=== PATIENT | female | born 1990 | race Caucasian/White ===

== ENCOUNTER 2017-07-14 16:08 | Observation (INO) | payer OTHER ==
[2017-07-14] MEDS ORDERED: DUONEB 0.5-3 MG/3 ml Neb IH ONE (16:37)
[2017-07-14] MEDS ORDERED: DUONEB 0.5-3 MG/3 ml Neb IH PRN (16:39)
[2017-07-14 16:47] LABS: A-aADO2 -65; ABG HEMOGLOBIN 15.6; ABG POTASSIUM 5.7 (3.5-5.1); ARTERIAL BLD GAS O2 SATURATION 99.8 % (95-100); ARTERIAL BLOOD GAS BASE EXCESS 1.4 (-2.0-2.0); ARTERIAL BLOOD GAS FIO2 21 %; ARTERIAL BLOOD GAS PO2 192 mmHg (75-100); CARBOXYHEMOGLOBIN 5.3 % THgb (0.0-6.9); HCO3- 19.4 (22-28); HGB O2 SAT 93.6 g/dF (94-100); Methhemoglobin 0.8 % (1.4-1.5); paO2 pAO1 1.51
[2017-07-14 16:49] LABS: ARTERIAL BLOOD GAS PCO2 18 mmHg (35-45); ARTERIAL BLOOD GAS pH 7.64 (7.35-7.45)
[2017-07-14 16:50] LABS: ABG SITE LEFT RADIAL; ALLEN TEST OK? YES
[2017-07-14 17:03] LABS: Hemoglobin 13.9 gm/dl (12.0-16.0); Mean Cell Volume 86.3 fl (78-100); Mean Corpuscular Hemoglobin 27.9 pg (26-32); Mean Corpuscular Hgb Concent. 32.3 g/dl (32-36); Mean Platelet Volume 9.4 fl (6-9.5); Platelet Count 316 K/mm3 (150-450); Red Blood Count 4.98 M/mm3 (4.1-5.4); Red Cell Distribution Width 13.5 % (11.5-14.0); White Blood Count 12.2 K/mm3 (4.0-10.5)
[2017-07-14 17:40] LABS: ALBUMIN 3.7 g/dL (3.4-5.0); ALKALINE PHOSPHATASE 139 U/L (46-116); ANION GAP 15.5 MEQ/L (5-15); BLOOD UREA NITROGEN 8 mg/dL (9-20); CHLORIDE 105 mEq/L (98-107); Calcium 9.4 mg/dL (8.5-10.1); Carbon Dioxide 24.3 mEq/L (21-32); Creatinine 1 0.85 mg/dl (0.55-1.30); EST GLOMERULAR FILTRATION RATE > 60 ML/MIN; Glucose 132 MG/DL (70-110); Potassium 3.8 mEq/L (3.5-5.1); SGOT/AST 42 U/L (15-37); SGPT/ALT 57 U/L (12-78); SODIUM 141 mEq/L (136-145); Total Protein 7.9 gm/dL (6.4-8.2)
[2017-07-14 18:05] LABS: INFLUENZA A NEGATIVE (NEGATIVE); INFLUENZA B NEGATIVE (NEGATIVE); RESPIRATORY SYNCTIAL VIRUS NEGATIVE (Negative)
[2017-07-14] MEDS: Sodium Chloride 0.9% 1000 ML 1,000 ML IV SCH (18:19)
[2017-07-14] MEDS: solu-MEDROL 125 MG IV SCH ×2 (18:19→22:33)
[2017-07-14] MEDS: ROCEPHIN 1 Gm-D5w 50 ml Bag** 1 G/50 ML IVPB IV SCH (18:19)
[2017-07-15] MEDS: TYLENOL 325 MG PO PRN ×2 (00:24→12:29)
[2017-07-15] MEDS: Sodium Chloride 0.9% 1000 ML 1,000 ML IV SCH ×2 (01:59→09:04)
[2017-07-15] MEDS: solu-MEDROL 125 MG IV SCH ×2 (06:27→13:46)
--- NOTE | 2017-07-15 08:35 | XRAY ---
Indication: Cough and hoarseness. Comparison: October 23, 2010. PA/lateral chest again demonstrates normal heart, lungs, and bony thorax.
[2017-07-15] MEDS: DUONEB 0.5-3 MG/3 ml Neb IH SCH ×3 (10:15→15:15)
[2017-07-15] MEDS: ROCEPHIN 1 Gm-D5w 50 ml Bag** 1 G/50 ML IVPB IV SCH (10:59)
[2017-07-15 12:41] VITALS: BP 126/62; O2SAT 93
[2017-07-15 15:17] VITALS: PULSE 92
== END 2017-07-15 15:55 | disposition home or self-care (01) ==
LOC: MED SURG 16:08
PROVIDERS: ADMIT General Practice; ATTEND General Practice
DX: J18.0 Bronchopneumonia, unspecified organism (principal); J06.9 Acute upper respiratory infection, unspecified; E66.8 Other obesity
CPT/HCPCS: 36415; 36600; 71046; 80053; 82375; 82803; 84703; 85027; 87631; 94640; 94760; G0378; J0696; J2930; A9270-GY

== ENCOUNTER 2017-10-28 13:50 | Observation (INO) | payer OTHER ==
[2017-10-28 16:03] LABS: A-aADO2 36; ABG POTASSIUM 3.8 (3.5-5.1); ABG SITE LEFT RADIAL; ALLEN TEST OK? YES; ARTERIAL BLD GAS O2 SATURATION 95.8 % (95-100); ARTERIAL BLOOD GAS BASE EXCESS 1.3 (-2.0-2.0); ARTERIAL BLOOD GAS FIO2 21 %; ARTERIAL BLOOD GAS PCO2 40 mmHg (35-45); ARTERIAL BLOOD GAS PO2 64 mmHg (75-100); ARTERIAL BLOOD GAS pH 7.42 (7.35-7.45); CARBOXYHEMOGLOBIN 1.9 % THgb (0.0-6.9); HCO3- 25.9 (22-28); HGB O2 SAT 92.9 g/dF (94-100); Methhemoglobin 1.1 % (1.4-1.5); paO2 pAO1 0.64
[2017-10-28 16:31] LABS: Hematocrit 40.5 % (35-47); Hemoglobin 13.3 gm/dl (12.0-16.0); Mean Cell Volume 86.2 fl (78-100); Mean Corpuscular Hemoglobin 28.3 pg (26-32); Mean Corpuscular Hgb Concent. 32.8 g/dl (32-36); Mean Platelet Volume 9.2 fl (6-9.5); Platelet Count 224 K/mm3 (150-450); Red Cell Distribution Width 14.2 % (11.5-14.0); White Blood Count 6.4 K/mm3 (4.0-10.5)
[2017-10-28] MEDS ORDERED: DUONEB 0.5-3 MG/3 ml Neb IH PRN (16:42)
[2017-10-28 17:01] LABS: ALKALINE PHOSPHATASE 116 U/L (38-126); ANION GAP 13.9 MEQ/L (5-15); BLOOD UREA NITROGEN 12 mg/dL (7-17); CHLORIDE 103 mmol/L (98-107); Calcium 8.9 mg/dL (8.4-10.2); Carbon Dioxide 25 mmol/L (22-30); Creatinine 1 0.63 mg/dL (0.52-1.04); Glucose 115 mg/dL (74-106); Potassium 3.9 mmol/L (3.5-5.1); SGOT/AST 45 U/L (14-36); SGPT/ALT 45 U/L (0-35); SODIUM 138 mmol/L (137-145); Total Protein 7.2 g/dL (6.3-8.2)
[2017-10-28 17:03] LABS: INFLUENZA A NEGATIVE (NEGATIVE); INFLUENZA B NEGATIVE (NEGATIVE); RESPIRATORY SYNCTIAL VIRUS NEGATIVE (Negative)
[2017-10-28] MEDS: Sodium Chloride 0.9% 1000 ML 1,000 ML IV SCH (17:10)
[2017-10-28] MEDS: solu-MEDROL 125 MG IV SCH (17:20)
[2017-10-28] MEDS: ROCEPHIN 1 Gm-D5w 50 ml Bag** 1 G/50 ML IVPB IV SCH (18:16)
[2017-10-28] MEDS: DUONEB 0.5-3 MG/3 ml Neb IH SCH (21:10)
[2017-10-29] MEDS: solu-MEDROL 125 MG IV SCH ×3 (01:07→07:28)
[2017-10-29] MEDS: Sodium Chloride 0.9% 1000 ML 1,000 ML IV SCH (03:51)
[2017-10-29] MEDS: DUONEB 0.5-3 MG/3 ml Neb IH SCH ×2 (07:00→10:24)
[2017-10-29 10:28] VITALS: O2SAT 95
[2017-10-29] MEDS: ROCEPHIN 1 Gm-D5w 50 ml Bag** 1 G/50 ML IVPB IV SCH (10:32)
--- NOTE | 2017-10-29 12:15 | PCM.SSS ---
History of Present Illness - Chief Complaint Chief Complaint: shortness of breath for 1-2 days History of Present Illness: see H&P - Review of Systems Constitutional: No Fever, No Chills Eyes: No Symptoms Ears, Nose, & Throat: No Symptoms Respiratory: Cough, Orthopnea, Short Of Breath Cardiac: No Chest Pain, No Edema, No Syncope Abdominal/Gastrointestinal: No Abdominal Pain, No Nausea, No Vomiting, No Diarrhea Genitourinary Symptoms: No Dysuria Musculoskeletal: No Back Pain, No Neck Pain Skin: No Rash Neurological: No Dizziness, No Focal Weakness, No Sensory Changes Psychological: No Symptoms Endocrine: No Symptoms Hematologic/Lymphatic: No Symptoms Immunological/Allergic: No Symptoms Medications & Allergies Home Medications: Home Medication List Albuterol/Ipratropium 3ml Neb* [DUONEB 0.5-3 MG/3 ml Neb] 3 ml IH Q6HPRN PRN # 60 ampul.neb 07/15/17 [Rx Confirmed 10/28/17] Nebulizer/Compressor [Comp-Air Nebulizer System] 1 each MC Q6HPRN PRN #1 each [Rx Confirmed 10/28/17] Cephalexin Mh 500 mg [Keflex 500 mg] 500 mg PO QID #20 capsule 10/29/17 [Rx] Allergies/Adverse Reactions: Allergies Allergy/AdvReac Type Severity Reaction Status Date / Time Sulfa (Sulfonamide Allergy Intermediate Rash Verified 07/14/17 16:24 Antibiotics) latex Allergy Verified 07/14/17 16:24 - Past Medical History Past Medical History: Yes Neurological History: No Pertinent History ENT History: No Pertinent History Cardiac History: No Pertinent History Respiratory History: Asthma, Bronchitis, Pneumonia Endocrine Medical History: No Pertinent History Musculoskelatal History: No Pertinent History GI Medical History: No Pertinent History History: No Pertinent History Pyscho-Social History: Anxiety, Bipolar, Depression Reproductive Disorders: No Pertinent History - Female History Hx Last Menstrual Period: 09/18/17 Are you now?: No - Past Surgical History Past Surgical History: Yes Neuro Surgical History: No Pertinent History Cardiac History: No Pertinent History Respiratory Surgery: No Pertinent History GI Surgical History: No Pertinent History Genitourinary Surgical Hx: No Pertinent History Musculskeletal Surgical Hx: No Pertinent History Female Surgical History: No Pertinent History Other Surgical History: nasal 2012 - Social History Smoking Status: Former smoker How long have you smoked: 8-9 years Exposure to second hand smoke: Yes (occasionally) Alcohol: None Drug Use: none - Physical Exam Vital Signs: Vital Signs - 24 hr Temp Pulse Resp BP Pulse Ox 10/29/17 11:14 20 95 10/29/17 10:27 109 H 18 95 10/29/17 07:18 97.8 F 116 H 20 132/66 92 L 10/29/17 07:08 107 H 18 93 L 10/29/17 03:00 98.0 F 98 H 20 121/69 94 L 10/29/17 02:28 18 10/28/17 23:00 97.6 F 114 H 18 124/64 92 L 10/28/17 19:00 102 H 18 98 10/28/17 18:56 98.4 F 113 H 20 124/66 96 10/28/17 17:05 97 10/28/17 16:55 100 H 20 95 10/28/17 16:31 98.2 F 113 H 20 132/68 91 L 10/28/17 15:13 98.2 F 113 H 132/68 10/28/17 15:10 98.2 F 113 H 20 132/68 91 L Oxygen-Last 24 hours O2 Percentage 2 Liters = 28% General Appearance: no apparent distress, alert Neurologic Exam: alert, oriented x 3, cooperative, normal mood/affect, nml cerebellar function, nml station & gait, sensation nml, No motor deficits Eye Exam: PERRL/EOMI, eyes nml inspection Ears, Nose, Throat Exam: normal ENT inspection, TMs normal, pharynx normal, moist mucous membranes Neck Exam: normal inspection, non-tender, supple, full range of motion Respiratory Exam: normal breath sounds, lungs clear, No respiratory distress Cardiovascular Exam: regular rate/rhythm, normal heart sounds, normal peripheral pulses Gastrointestinal/Abdomen Exam: soft, normal bowel sounds, No tenderness, No mass Back Exam: normal inspection, normal range of motion, No CVA tenderness, No vertebral tenderness Extremity Exam: normal inspection, normal range of motion, pelvis stable Skin Exam: normal color, warm, dry, No rash Lymphatic Exam: No adenopathy Results - Labs Lab/Micro Results: Lab Results-Last 24 Hours 10/28/17 10/28/17 10/28/17 Range/Units 16:00 16:27 16:27 WBC 6.4 (4.0-10.5) K/mm3 RBC 4.70 (4.1-5.4) M/mm3 Hgb 13.3 (12.0-16.0) gm/dl Hct 40.5 (35-47) % MCV 86.2 (78-100) fl MCH 28.3 (26-32) pg MCHC 32.8 (32-36) g/dl RDW 14.2 H (11.5-14.0) % Plt Count 224 (150-450) K/mm3 MPV 9.2 (6-9.5) fl Puncture Site LEFT RADIAL pCO2 40 (35-45) mmHg pO2 64 L (75-100) mmHg Base Excess 1.3 (-2.0-2.0) O2 Saturation 92.9 L (94-100) g/dF ABG pH 7.42 (7.35-7.45) ABG HCO3 25.9 (22-28) ABG O2 Sat (Measured) 95.8 (95-100) % William Test YES A-a Gradient 36 a/A Ratio 0.64 Hemoglobin 14.0 Carboxyhemoglobin 1.9 (0.0-6.9) % THgb Methemoglobin 1.1 L (1.4-1.5) % Potassium 3.8 3.9 (3.5-5.1) Temperature 37.0 C POC O2 Flow Rate 21 % Sodium 138 (137-145) mmol/L Chloride 103 (98-107) mmol/L Carbon Dioxide 25 (22-30) mmol/L Anion Gap 13.9 (5-15) MEQ/L BUN 12 (7-17) mg/dL Creatinine 0.63 (0.52-1.04) mg/dL Estimated GFR > 60.0 ML/MIN Glucose 115 H (74-106) mg/dL Calcium 8.9 (8.4-10.2) mg/dL Total Bilirubin 0.30 (0.2-1.3) mg/dL AST 45 H (14-36) U/L ALT 45 H (0-35) U/L Alkaline Phosphatase 116 (38-126) U/L Troponin I (0.000-0.034) ng/mL Serum Total Protein 7.2 (6.3-8.2) g/dL Albumin 4.0 (3.5-5.0) g/dL Serum , Qual (Negative) Influenza Type A Ag (NEGATIVE) Influenza Type B Ag (NEGATIVE) RSV (PCR) (Negative) 10/28/17 10/28/17 10/28/17 Range/Units 16:27 16:27 16:27 WBC (4.0-10.5) K/mm3 RBC (4.1-5.4) M/mm3 Hgb (12.0-16.0) gm/dl Hct (35-47) % MCV (78-100) fl MCH (26-32) pg MCHC (32-36) g/dl RDW (11.5-14.0) % Plt Count (150-450) K/mm3 MPV (6-9.5) fl Puncture Site pCO2 (35-45) mmHg pO2 (75-100) mmHg Base Excess (-2.0-2.0) O2 Saturation (94-100) g/dF ABG pH (7.35-7.45) ABG HCO3 (22-28) ABG O2 Sat (Measured) (95-100) % William Test A-a Gradient a/A Ratio Hemoglobin Carboxyhemoglobin (0.0-6.9) % THgb Methemoglobin (1.4-1.5) % Potassium (3.5-5.1) Temperature C POC O2 Flow Rate % Sodium (137-145) mmol/L Chloride (98-107) mmol/L Carbon Dioxide (22-30) mmol/L Anion Gap (5-15) MEQ/L BUN (7-17) mg/dL Creatinine (0.52-1.04) mg/dL Estimated GFR ML/MIN Glucose (74-106) mg/dL Calcium (8.4-10.2) mg/dL Total Bilirubin (0.2-1.3) mg/dL AST (14-36) U/L ALT (0-35) U/L Alkaline Phosphatase (38-126) U/L Troponin I < 0.012 (0.000-0.034) ng/mL Serum Total Protein (6.3-8.2) g/dL Albumin (3.5-5.0) g/dL Serum , Qual NEGATIVE (Negative) Influenza Type A Ag NEGATIVE (NEGATIVE) Influenza Type B Ag NEGATIVE (NEGATIVE) RSV (PCR) NEGATIVE (Negative) - Other Procedures and Tests Respiratory Therapy 10/28/17 16:43 Respiratory Nebulizer UD 10/28/17 17:03 Oxygen NASAL CANNULA 2 lpm 10/28/17 19:00 Respiratory Nebulizer QID Assessment/Plan (1) Bronchitis Current Visit: Yes Status: Resolved Code(s): J40 - BRONCHITIS, NOT SPECIFIED ACUTE OR CHRONIC Hospital Summary - Hospital Course Hospital Course: Chief Complaint Diagnosis bronchio-pneumonia Allergies Allergy/AdvReac Type Severity Reaction Status Date / Time Sulfa (Sulfonamide Allergy Intermediate Rash Verified 07/14/17 16:24 Antibiotics) latex Allergy Verified 07/14/17 16:24 Vital Signs (Last 24 hours) Temp Pulse Resp BP Pulse Ox 10/29/17 11:14 20 95 10/29/17 10:27 109 H 18 95 10/29/17 07:18 97.8 F 116 H 20 132/66 92 L 10/29/17 07:08 107 H 18 93 L 10/29/17 03:00 98.0 F 98 H 20 121/69 94 L 10/29/17 02:28 18 10/28/17 23:00 97.6 F 114 H 18 124/64 92 L 10/28/17 19:00 102 H 18 98 10/28/17 18:56 98.4 F 113 H 20 124/66 96 10/28/17 17:05 97 10/28/17 16:55 100 H 20 95 10/28/17 16:31 98.2 F 113 H 20 132/68 91 L 10/28/17 15:13 98.2 F 113 H 132/68 10/28/17 15:10 98.2 F 113 H 20 132/68 91 L Current Medications Generic Name Dose Route Start Last Admin Trade Name Freq PRN Reason Stop Dose Admin Albuterol/Ipratropium 3 ml 10/28/17 19:00 10/29/17 10:24 Duoneb 0.5-3 Mg/3 Ml Neb IH 11/27/17 18:59 3 ml QIDRT REGINA Administration Albuterol/Ipratropium 3 ml 10/28/17 16:42 10/28/17 16:49 Duoneb 0.5-3 Mg/3 Ml Neb IH 11/27/17 16:41 3 ml Q4HPRN PRN Administration SHORTNESS OF BREATH/WHEEZING Ceftriaxone Sodium/Dextrose 1 g in 50 mls @ 100 mls/hr 10/28/17 16:00 10:32 Rocephin 1 Gm-D5w 50 Ml Bag IV 11/27/17 15:59 100 mls/hr Q24H10 REGINA Administration Sodium Chloride 1,000 mls @ 100 mls/hr 10/28/17 15:15 10/29/17 03:51 Sodium Chloride 0.9% 1000 Ml IV 11/27/17 15:14 100 mls/hr .Q10H REGINA Administration Methylprednisolone Sodium Succinate 60 mg 10/28/17 15:30 10/29/17 07:28 Solu-Medrol 125 Mg IV 11/27/17 15:29 60 mg Q8HT REGINA Administration Intake & Output (Last 24 hours) 10/27/17 10/28/17 10/29/17 10/30/17 11:59 11:59 11:59 11:59 Intake Total 2189 Output Total 1800 Balance 389 Weight 120.9 kg Laboratory Results (Last 24 hours) 10/28/17 10/28/17 10/28/17 16:27 16:27 16:27 WBC RBC Hgb Hct MCV MCH MCHC RDW Plt Count MPV Puncture Site pCO2 pO2 Base Excess O2 Saturation ABG pH ABG HCO3 ABG O2 Sat (Measured) William Test A-a Gradient a/A Ratio Hemoglobin Carboxyhemoglobin Methemoglobin Potassium Temperature POC O2 Flow Rate Sodium Chloride Carbon Dioxide Anion Gap BUN Creatinine Estimated GFR Glucose Calcium Total Bilirubin AST ALT Alkaline Phosphatase Troponin I < 0.012 Serum Total Protein Albumin Serum , Qual NEGATIVE Influenza Type A Ag NEGATIVE Influenza Type B Ag NEGATIVE RSV (PCR) NEGATIVE 10/28/17 10/28/17 10/28/17 16:27 16:27 16:00 WBC 6.4 RBC 4.70 Hgb 13.3 Hct 40.5 MCV 86.2 MCH 28.3 MCHC 32.8 RDW 14.2 H Plt Count 224 MPV 9.2 Puncture Site LEFT RADIAL pCO2 40 pO2 64 L Base Excess 1.3 O2 Saturation 92.9 L ABG pH 7.42 ABG HCO3 25.9 ABG O2 Sat (Measured) 95.8 William Test YES A-a Gradient 36 a/A Ratio 0.64 Hemoglobin 14.0 Carboxyhemoglobin 1.9 Methemoglobin 1.1 L Potassium 3.9 3.8 Temperature 37.0 POC O2 Flow Rate 21 Sodium 138 Chloride 103 Carbon Dioxide 25 Anion Gap 13.9 BUN 12 Creatinine 0.63 Estimated GFR > 60.0 Glucose 115 H Calcium 8.9 Total Bilirubin 0.30 AST 45 H ALT 45 H Alkaline Phosphatase 116 Troponin I Serum Total Protein 7.2 Albumin 4.0 Serum , Qual Influenza Type A Ag Influenza Type B Ag RSV (PCR) Orders (Last 24 hours) Category Date Time Status IV Insertion ROUTINE Care 10/28/17 15:[address] in Observation ROUTINE Care 10/28/17 14:46 Active Sequential Compression Device Q6H Care 10/28/17 15:12 Active Regular Diet Diet 10/28/17 Dinner Active ARTERIAL BLOOD GASES Urgent Lab 10/28/17 16:00 Completed CBC Urgent Lab 10/28/17 16:27 Completed CMP Urgent Lab 10/28/17 16:27 Completed HCG QUALITATIVE,SERUM Urgent Lab 10/28/17 16:27 Completed Respiratory Panel Urgent Lab 10/28/17 16:27 Completed TROPONIN Stat Lab 10/28/17 16:27 Completed Albuterol/Ipratropium 3ml Neb* [DUONEB 0.5-3 MG/3 ml Med 10/28/17 16:42 Active Neb] 3 ml IH Q4HPRN PRN Albuterol/Ipratropium 3ml Neb* [DUONEB 0.5-3 MG/3 ml Med 10/28/17 19:00 Active Neb] 3 ml IH QIDRT Ceftriaxone 1 GM/50 ML PREMIX* [ROCEPHIN 1 Gm-D5w 50 ml Med 10/28/17 16:00 Active Bag] 1 g in 50 ml IV Q24H10 Methylprednis Sod Succ 125 mg* [solu-MEDROL 125 MG] Med 10/28/17 15:30 Active 60 mg IV Q8HT NaCl 0.9% 1000 ml [Sodium Chloride 0.9% 1000 ML] 1,000 Med 10/28/17 15:15 Active ml IV 100 mls/hr EKG ROUTINE RT 10/28/17 15:12 Completed Oxygen NASAL CANNULA 2 lpm RT 10/28/17 17:03 Active Respiratory Nebulizer QID RT 10/28/17 19:00 Active Respiratory Nebulizer UD RT 10/28/17 16:43 Active - Vitals & Intake/Output Vital Signs: Vital Signs Temperature 97.8 F 10/29/17 07:18 Pulse Rate 109 H 10/29/17 10:27 Respiratory Rate 20 10/29/17 11:14 Blood Pressure 132/66 10/29/17 07:18 O2 Sat by Pulse Oximetry 95 10/29/17 11:14 Oxygen-Last Documented O2 Percentage 2 Liters = 28% Intake & Output: Intake & Output 10/27/17 10/28/17 10/29/17 10/30/17 11:59 11:59 11:59 11:59 Intake Total 2189 Output Total 1800 Balance 389 Weight 120.9 kg - Lab Result Diagrams: 10/28/17 16:27 10/28/17 16:27 Lab Results-Last 24 Hrs: Lab Results-Last 24 Hours 10/28/17 10/28/17 10/28/17 Range/Units 16:00 16:27 16:27 WBC 6.4 (4.0-10.5) K/mm3 RBC 4.70 (4.1-5.4) M/mm3 Hgb 13.3 (12.0-16.0) gm/dl Hct 40.5 (35-47) % MCV 86.2 (78-100) fl MCH 28.3 (26-32) pg MCHC 32.8 (32-36) g/dl RDW 14.2 H (11.5-14.0) % Plt Count 224 (150-450) K/mm3 MPV 9.2 (6-9.5) fl Puncture Site LEFT RADIAL pCO2 40 (35-45) mmHg pO2 64 L (75-100) mmHg Base Excess 1.3 (-2.0-2.0) O2 Saturation 92.9 L (94-100) g/dF ABG pH 7.42 (7.35-7.45) ABG HCO3 25.9 (22-28) ABG O2 Sat (Measured) 95.8 (95-100) % William Test YES A-a Gradient 36 a/A Ratio 0.64 Hemoglobin 14.0 Carboxyhemoglobin 1.9 (0.0-6.9) % THgb Methemoglobin 1.1 L (1.4-1.5) % Potassium 3.8 3.9 (3.5-5.1) Temperature 37.0 C POC O2 Flow Rate 21 % Sodium 138 (137-145) mmol/L Chloride 103 (98-107) mmol/L Carbon Dioxide 25 (22-30) mmol/L Anion Gap 13.9 (5-15) MEQ/L BUN 12 (7-17) mg/dL Creatinine 0.63 (0.52-1.04) mg/dL Estimated GFR > 60.0 ML/MIN Glucose 115 H (74-106) mg/dL Calcium 8.9 (8.4-10.2) mg/dL Total Bilirubin 0.30 (0.2-1.3) mg/dL AST 45 H (14-36) U/L ALT 45 H (0-35) U/L Alkaline Phosphatase 116 (38-126) U/L Troponin I (0.000-0.034) ng/mL Serum Total Protein 7.2 (6.3-8.2) g/dL Albumin 4.0 (3.5-5.0) g/dL Serum , Qual (Negative) Influenza Type A Ag (NEGATIVE) Influenza Type B Ag (NEGATIVE) RSV (PCR) (Negative) 10/28/17 10/28/17 10/28/17 Range/Units 16:27 16:27 16:27 WBC (4.0-10.5) K/mm3 RBC (4.1-5.4) M/mm3 Hgb (12.0-16.0) gm/dl Hct (35-47) % MCV (78-100) fl MCH (26-32) pg MCHC (32-36) g/dl RDW (11.5-14.0) % Plt Count (150-450) K/mm3 MPV (6-9.5) fl Puncture Site pCO2 (35-45) mmHg pO2 (75-100) mmHg Base Excess (-2.0-2.0) O2 Saturation (94-100) g/dF ABG pH (7.35-7.45) ABG HCO3 (22-28) ABG O2 Sat (Measured) (95-100) % William Test A-a Gradient a/A Ratio Hemoglobin Carboxyhemoglobin (0.0-6.9) % THgb Methemoglobin (1.4-1.5) % Potassium (3.5-5.1) Temperature C POC O2 Flow Rate % Sodium (137-145) mmol/L Chloride (98-107) mmol/L Carbon Dioxide (22-30) mmol/L Anion Gap (5-15) MEQ/L BUN (7-17) mg/dL Creatinine (0.52-1.04) mg/dL Estimated GFR ML/MIN Glucose (74-106) mg/dL Calcium (8.4-10.2) mg/dL Total Bilirubin (0.2-1.3) mg/dL AST (14-36) U/L ALT (0-35) U/L Alkaline Phosphatase (38-126) U/L Troponin I < 0.012 (0.000-0.034) ng/mL Serum Total Protein (6.3-8.2) g/dL Albumin (3.5-5.0) g/dL Serum , Qual NEGATIVE (Negative) Influenza Type A Ag NEGATIVE (NEGATIVE) Influenza Type B Ag NEGATIVE (NEGATIVE) RSV (PCR) NEGATIVE (Negative) - Procedures and Test Procedures and Tests throughout Hospitalization: Therapy Orders & Screens 10/28/17 15:12 EKG ROUTINE Comment: 10/28/17 16:43 Respiratory Nebulizer UD Comment: DUONEB Q4PRN Diagnosis: bronchio-pneumonia 10/28/17 17:03 Oxygen NASAL CANNULA 2 lpm Comment: Diagnosis: bronchio-pneumonia 10/28/17 19:00 Respiratory Nebulizer QID Comment: DUONEB QID Diagnosis: bronchio-pneumonia - Discharge Discharge Date: 10/29/17 Disposition: Home, Self-Care Condition: Stable Prescriptions: New Cephalexin Mh 500 mg [Keflex 500 mg] 500 mg PO QID #20 capsule Continue Nebulizer/Compressor [Comp-Air Nebulizer System] 1 each MC Q6HPRN PRN #1 each PRN Reason: Shortness Of Breath Albuterol/Ipratropium 3ml Neb* [DUONEB 0.5-3 MG/3 ml Neb] 3 ml IH Q6HPRN PRN #60 ampul.neb PRN Reason: Shortness Of Breath Instructions: Acute Bronchitis, Adult (DC) Follow up with: MAXX MEDINA [Primary Care Provider] - 11/06/17 11:45 am (at [facility]) Forms: Discharge Instructions
[2017-10-29 13:15] VITALS: BP 136/70; PULSE 100
== END 2017-10-29 13:55 | disposition home or self-care (01) ==
LOC: MED SURG 14:46
PROVIDERS: ADMIT General Practice; ATTEND General Practice
DX: J40 Bronchitis, not specified as acute or chronic (principal); J18.0 Bronchopneumonia, unspecified organism; J06.9 Acute upper respiratory infection, unspecified; E66.8 Other obesity; F41.9 Anxiety disorder, unspecified; F31.9 Bipolar disorder, unspecified; Z87.891 Personal history of nicotine dependence
CPT/HCPCS: 36415; 36600; 80053; 82375; 82803; 84484; 84703; 85027; 87631; 93005; 94150; 94640; 94760; G0378; J0696; J2930; A9270-GY

== ENCOUNTER 2018-05-23 22:02 | Inpatient (IN) | payer OTHER ==
[2018-05-23] MEDS ORDERED: Sodium Chloride 3 ML UD NEBULES IH ONE (22:23)
[2018-05-23] MEDS ORDERED: Levofloxacin 500MG/100ML D5W 500 MG/100 ML BAG IV STA (22:28)
[2018-05-23] MEDS ORDERED: PROVENTIL 2.5 MG/3 ML NEB IH ONE (22:28)
[2018-05-23] MEDS ORDERED: solu-MEDROL 125 MG IV ONE (22:28)
[2018-05-23] MEDS ORDERED: Sodium Chloride 0.9% 1000 ML 1,000 ML IV SCH (22:30)
[2018-05-23] MEDS ORDERED: solu-MEDROL 125 MG ONE (22:39)
[2018-05-23] MEDS ORDERED: Sodium Chloride 0.9% 1000 ML 1,000 ML ONE (22:39)
[2018-05-23] MEDS ORDERED: Levofloxacin 500MG/100ML D5W 500 MG/100 ML BAG IV ONE (22:40)
[2018-05-23] MEDS: Sodium Chloride 0.9% 1000 ML 1,000 ML IV SCH ×2 (22:46→23:49)
[2018-05-23 22:56] LABS: ANION GAP 19.2 MEQ/L (5-15); BLOOD UREA NITROGEN 23 mg/dL (7-17); CHLORIDE 101 mmol/L (98-107); Calcium 9.7 mg/dL (8.4-10.2); Carbon Dioxide 22 mmol/L (22-30); Creatinine 1 0.67 mg/dL (0.52-1.04); Glucose 105 mg/dL (74-106); Potassium 4.2 mmol/L (3.5-5.1); SODIUM 138 mmol/L (137-145)
[2018-05-23 22:58] LABS: INR 0.95 (0.8-3.0)
[2018-05-23 23:08] LABS: Granulocyte Absolute (ANC) 17.51 (1.4-6.9); Hematocrit 46.4 % (35-47); Hemoglobin 15.1 gm/dl (12.0-16.0); Mean Cell Volume 86.1 fl (78-100); Mean Corpuscular Hgb Concent. 32.5 g/dl (32-36); Mean Platelet Volume 9.6 fl (6-9.5); Platelet Count 377 K/mm3 (150-450); Red Blood Count 5.39 M/mm3 (4.1-5.4); Red Cell Distribution Width 14.8 % (11.5-14.0); White Blood Count 22.3 K/mm3 (4.0-10.5)
[2018-05-23 23:11] LABS: D-DIMER QUANTITATION < 215 ng/mL (215-500)
[2018-05-23 23:20] LABS: Lactic Acid 2.3 (0.4-2.0)
[2018-05-23 23:28] LABS: Lymphocytes 16 % (24-44); Monocyte 6 % (0.0-12.0); Neutrophils 78 % (36.0-66.0); Platelet Estimate NORMAL (NORMAL); Total Cells Counted 100
[2018-05-23 23:30] LABS: INFLUENZA A NEGATIVE (NEGATIVE); INFLUENZA B NEGATIVE (NEGATIVE); RESPIRATORY SYNCTIAL VIRUS NEGATIVE (Negative)
[2018-05-23] MEDS ORDERED: Sodium Chloride 0.9% 1000 ML 2,000 ML ONE (23:38)
[2018-05-23] MEDS ORDERED: Sodium Chloride 0.9% 1000 ML 0 ML ONE (23:44)
[2018-05-24] MEDS: Sodium Chloride 0.9% 1000 ML 1,000 ML IV SCH ×2 (00:54→02:25)
--- NOTE | 2018-05-24 01:23 | ERPHSYRPT ---
- History of Present Illness Time Seen by Provider: 05/23/18 22:40 Source: patient Patient Subjective Stated Complaint: pt states she has been sick for 2 weeks and has been short of breath and coughing today Triage Nursing Assessment: pt alert and oriented, answers questions approp. short of breath with talking. pt ambulatory with steady gait noted. frequent hacking cough noted. audible wheeze with expiration. Physician History: PATIENT WITH A HISTORY OF BRONCHIAL ASTHMA COMPLAINS OF PRODUCTIVE COUGH, DIFFICULTY BREATHING AND SHORTNESS OF BREATH X 5 DAYS. HAS HAD NO IMPROVEMENT AFTER 1 WEEK COURSE ANTIBIOTIC KEFLEX 500MG TWICE DAILY ALONG WITH MEDROL DOSEPAK, INHALERS AND NEBULIZERS AT HOME. HAS HAD LOW GRADE FEVER AND CHILLS. Timing/Duration: day(s) Activities at Onset: none Severity of Dyspnea-Max: moderate Severity of Dyspnea-Current: moderate Possible Cause: occasional episodes Modifying Factors: Improves With: activity, exertion Associated Symptoms: cough, tightness International travel in last 2 weeks: No Allergies/Adverse Reactions: Sulfa (Sulfonamide Antibiotics) Allergy (Intermediate, Verified 07/14/17 16:24) Rash latex Allergy (Verified 07/14/17 16:24) Hx Tetanus, Diphtheria Vaccination/Date Given: Yes (08/2017) Hx Influenza Vaccination/Date Given: No Hx Pneumococcal Vaccination/Date Given: No Immunizations Up to Date: Yes - Review of Systems Constitutional: No Fever, No Chills Eyes: No Symptoms Ears, Nose, & Throat: No Symptoms Respiratory: Cough, Dyspnea on Exertion (TRINIDAD), No Dyspnea Cardiac: No Symptoms, No Chest Pain, No Edema, No Syncope Abdominal/Gastrointestinal: No Symptoms, No Abdominal Pain, No Nausea, No Vomiting, No Diarrhea Genitourinary Symptoms: No Symptoms, No Dysuria Musculoskeletal: No Symptoms, No Back Pain, No Neck Pain Skin: No Symptoms, No Rash Neurological: No Dizziness, No Focal Weakness, No Sensory Changes Psychological: No Symptoms Endocrine: No Symptoms All Other Systems: Reviewed and Negative - Past Medical History Pertinent Past Medical History: Yes Neurological History: No Pertinent History ENT History: No Pertinent History Cardiac History: No Pertinent History Respiratory History: Asthma, Bronchitis, Pneumonia Endocrine Medical History: No Pertinent History Musculoskeletal History: No Pertinent History GI Medical History: No Pertinent History History: No Pertinent History Psycho-Social History: Anxiety, Bipolar, Depression Female Reproductive Disorders: No Pertinent History - Past Surgical History Past Surgical History: Yes Neuro Surgical History: No Pertinent History Cardiac: No Pertinent History Respiratory: No Pertinent History Gastrointestinal: No Pertinent History Genitourinary: No Pertinent History Musculoskeletal: No Pertinent History Female Surgical History: No Pertinent History Other Surgical History: nasal 2011 - Social History Smoking Status: Former smoker How long have you smoked: 8-9 years Exposure to second hand smoke: Yes (occasionally) Drug Use: none Patient Lives Alone: No - Female History Hx Last Menstrual Period: unsure- irreg Hx Now: (UNKNOWN) - Nursing Vital Signs Nursing Vital Signs: Initial Vital Signs Temperature 99.1 F 05/23/18 22:22 Pulse Rate 117 H 05/23/18 22:22 Respiratory Rate 24 05/23/18 22:22 Blood Pressure 130/92 05/23/18 22:22 O2 Sat by Pulse Oximetry 97 05/23/18 22:22 Pain Scale Pain Intensity 6 - Physical Exam General Appearance: mild distress Eye Exam: PERRL/EOMI Ears, Nose, Throat Exam: hearing grossly normal Neck Exam: normal inspection Respiratory Exam: diminished breath sounds, wheezing, other (GOOD AIR EXCHANGE, TERMINAL WHEEZES) Cardiovascular/Chest Exam: normal heart sounds, regular rate/rhythm Abdominal/Gastrointestinal Exam: soft, normal bowel sounds Extremity Exam: non-tender, normal range of motion, normal inspection Peripheral Pulses Exam: carotid (R): 2+, carotid (L): 2+, femoral (R): 2+, femoral (L): 2+, dorsalis-pedis (R): 2+, dorsalis-pedis (L): 2+ Neurologic Exam: alert Skin Exam: normal color SpO2 Interpretation: normal SpO2: 94 Oxygen Delivery: Room Air - Course EKG Interpreted by Me: RATE, Sinus Rhythm, NORMAL AXIS - Radiology Exams Chest X-ray Interpretation: Interpreted by me, Negative, No Infiltrates Ordered Tests: Active Orders 24 hr Category Date Time Status EKG-ER Only STAT Care 05/23/18 22:28 Active IV Insertion STAT Care 05/23/18 22:25 Active CHEST 1 VIEW (PORTABLE) Stat Exams 05/24/18 01:01 Taken BLOOD CULTURE Stat Lab 05/23/18 22:48 Received BMP Stat Lab 05/23/18 22:35 Completed CBC W DIFF Stat Lab 05/23/18 22:35 Completed D-DIMER QUANTITATION Stat Lab 05/23/18 22:35 Completed HCG,QUALITATIVE URINE Stat Lab 05/24/18 00:46 Completed Lactic Acid Stat Lab 05/23/18 23:15 Completed Lactic Acid Stat Lab 05/24/18 01:17 Ordered Lactic Acid Stat Lab 05/24/18 01:19 Ordered MAGNESIUM Stat Lab 05/23/18 22:35 Completed Manual Differential NC Stat Lab 05/23/18 22:35 Completed PROTIME WITH INR Stat Lab 05/23/18 22:35 Completed TROPONIN Q3H Lab 05/23/18 22:36 Completed TROPONIN Q3H Lab 05/24/18 01:30 Ordered TROPONIN Q3H Lab 05/24/18 04:30 Ordered TROPONIN Q3H Lab 05/24/18 07:30 Ordered TROPONIN Q3H Lab 05/24/18 10:30 Ordered Peak Expiratory Flow Rate ONCE RT 05/23/18 22:28 Active Respiratory Nebulizer STAT RT 05/23/18 22:30 Active Respiratory Therapy Assessment DAILY RT 05/23/18 22:38 Active Transfer Order Routine Transfer 05/24/18 Ordered Medication Summary Generic Name Dose Route Start Last Admin Trade Name Freq PRN Reason Stop Dose Admin Sodium Chloride 1,000 mls @ 999 mls/hr 05/23/18 22:45 05/24/18 00:54 Sodium Chloride 0.9% 1000 Ml IV 05/24/18 01:45 999 mls/hr .Q1H1M REGINA Administration Discontinued Medications Generic Name Dose Route Start Last Admin Trade Name Freq PRN Reason Stop Dose Admin Albuterol Sulfate 10 mg 05/23/18 22:28 05/23/18 22:37 Proventil 2.5 Mg/3 Ml Neb IH 05/23/18 22:29 10 mg STAT ONE Administration Levofloxacin/Dextrose 500 mg in 100 mls @ 100 mls/hr 05/23/18 22:28 05/23/18 22:47 Levofloxacin 500mg/100ml D5w IV 05/23/18 23:27 100 ml/hr STAT STA 100 mls/hr Administration Sodium Chloride 1,000 mls @ 250 mls/hr 05/23/18 22:30 Sodium Chloride 0.9% 1000 Ml IV 06/22/18 22:29 .Q4H REGINA Levofloxacin/Dextrose Confirm 05/23/18 22:40 Levofloxacin 500mg/100ml D5w Administered 05/23/18 22:41 Dose 500 mg in 100 mls @ ud IV .STK-MED ONE Methylprednisolone Sodium Succinate 125 mg 05/23/18 22:28 05/23/18 22:46 Solu-Medrol 125 Mg IV 05/23/18 22:29 125 mg STAT ONE Administration Methylprednisolone Sodium Succinate Confirm 05/23/18 22:39 Solu-Medrol 125 Mg Administered 05/23/18 22:40 Dose 125 mg .ROUTE .STK-MED ONE Sodium Chloride Confirm 05/23/18 22:23 Sodium Chloride 3 Ml Ud Nebules Administered 05/23/18 22:24 Dose 12 ml IH .STK-MED ONE Lab/Rad Data: Laboratory Result Diagrams 05/23/18 22:35 05/23/18 22:35 Laboratory Results 05/24/18 05/23/18 05/23/18 Range/Units 00:46 23:15 22:48 WBC (4.0-10.5) K/mm3 RBC (4.1-5.4) M/mm3 Hgb (12.0-16.0) gm/dl Hct (35-47) % MCV (78-100) fl MCH (26-32) pg MCHC (32-36) g/dl RDW (11.5-14.0) % Plt Count (150-450) K/mm3 MPV (6-9.5) fl Absolute Granulocytes (1.4-6.9) Segmented Neutrophils (36.0-66.0) % Lymphocytes (Manual) (24-44) % Monocytes (Manual) (0.0-12.0) % Platelet Estimate (NORMAL) RBC Morphology PT (9.95-12.35) SECONDS INR (0.8-3.0) D-Dimer (215-500) ng/mL Sodium (137-145) mmol/L Potassium (3.5-5.1) mmol/L Chloride (98-107) mmol/L Carbon Dioxide (22-30) mmol/L Anion Gap (5-15) MEQ/L BUN (7-17) mg/dL Creatinine (0.52-1.04) mg/dL Estimated GFR ML/MIN Glucose (74-106) mg/dL Lactic Acid 2.3 H (0.4-2.0) Calcium (8.4-10.2) mg/dL Magnesium (1.6-2.3) mg/dL Troponin I (0.000-0.034) ng/mL Urine HCG, Qual NEGATIVE (Negative) Influenza Type A Ag NEGATIVE (NEGATIVE) Influenza Type B Ag NEGATIVE (NEGATIVE) RSV (PCR) NEGATIVE (Negative) 05/23/18 05/23/18 05/23/18 Range/Units 22:36 22:35 22:35 WBC (4.0-10.5) K/mm3 RBC (4.1-5.4) M/mm3 Hgb (12.0-16.0) gm/dl Hct (35-47) % MCV (78-100) fl MCH (26-32) pg MCHC (32-36) g/dl RDW (11.5-14.0) % Plt Count (150-450) K/mm3 MPV (6-9.5) fl Absolute Granulocytes (1.4-6.9) Segmented Neutrophils (36.0-66.0) % Lymphocytes (Manual) (24-44) % Monocytes (Manual) (0.0-12.0) % Platelet Estimate (NORMAL) RBC Morphology PT 11.0 (9.95-12.35) SECONDS INR 0.95 (0.8-3.0) D-Dimer < 215 L (215-500) ng/mL Sodium 138 (137-145) mmol/L Potassium 4.2 (3.5-5.1) mmol/L Chloride 101 (98-107) mmol/L Carbon Dioxide 22 (22-30) mmol/L Anion Gap 19.2 H (5-15) MEQ/L BUN 23 H (7-17) mg/dL Creatinine 0.67 (0.52-1.04) mg/dL Estimated GFR > 60.0 ML/MIN Glucose 105 (74-106) mg/dL Lactic Acid (0.4-2.0) Calcium 9.7 (8.4-10.2) mg/dL Magnesium 1.9 (1.6-2.3) mg/dL Troponin I < 0.012 (0.000-0.034) ng/mL Urine HCG, Qual (Negative) Influenza Type A Ag (NEGATIVE) Influenza Type B Ag (NEGATIVE) RSV (PCR) (Negative) 05/23/18 Range/Units 22:35 WBC 22.3 H (4.0-10.5) K/mm3 RBC 5.39 (4.1-5.4) M/mm3 Hgb 15.1 (12.0-16.0) gm/dl Hct 46.4 (35-47) % MCV 86.1 (78-100) fl MCH 28.0 (26-32) pg MCHC 32.5 (32-36) g/dl RDW 14.8 H (11.5-14.0) % Plt Count 377 (150-450) K/mm3 MPV 9.6 H (6-9.5) fl Absolute Granulocytes 17.51 H (1.4-6.9) Segmented Neutrophils 78 H (36.0-66.0) % Lymphocytes (Manual) 16 L (24-44) % Monocytes (Manual) 6 (0.0-12.0) % Platelet Estimate NORMAL (NORMAL) RBC Morphology NORMAL PT (9.95-12.35) SECONDS INR (0.8-3.0) D-Dimer (215-500) ng/mL Sodium (137-145) mmol/L Potassium (3.5-5.1) mmol/L Chloride (98-107) mmol/L Carbon Dioxide (22-30) mmol/L Anion Gap (5-15) MEQ/L BUN (7-17) mg/dL Creatinine (0.52-1.04) mg/dL Estimated GFR ML/MIN Glucose (74-106) mg/dL Lactic Acid (0.4-2.0) Calcium (8.4-10.2) mg/dL Magnesium (1.6-2.3) mg/dL Troponin I (0.000-0.034) ng/mL Urine HCG, Qual (Negative) Influenza Type A Ag (NEGATIVE) Influenza Type B Ag (NEGATIVE) RSV (PCR) (Negative) - Progress Progress: improved Progress Note: 05/24/18 01:23, INITIAL PEAK FLOW 320 IV BOLUS 2.5 LITERS OVER 2 HOURS, PLACED ONTO SEPSIS PROTOCOL DUE TO TACHYCARDIA AND TACHYPNEA. AFTER2 SETS OF BLOOD CULTURES, LEVAQUIN 500MG IVPB, SOLUMEDROL 125MG IV AND ALBUTEROL 10 MG CONTINUOUS AEROSOL TX , IMPROVED AIR EXCHANGE 05/24/18 01:25 05/24/18 01:36 Blood Culture(s) Obtained: Yes Antibiotics given: Yes Discussed with : Other (DISCUSSED WITH DR BELTRÁN AT 0120 FOR OBSERVATION) - Departure Time of Disposition: 01:35 Departure Disposition: Observation Clinical Impression: ACUTE BRONCHIAL PNEUMONIA , ACUTE BRONCHIAL SPASM Condition: Stable Critical Care Time: No Referrals: [facility] [Primary Care Provider] -
[2018-05-24 01:40] LABS: Lactic Acid 2.7 (0.4-2.0)
[2018-05-24] MEDS ORDERED: Xopenex 1.25 MG/0.5 ML UD NEBULE IH PRN (01:49)
[2018-05-24] MEDS: DUONEB 0.5-3 MG/3 ml Neb IH SCH ×5 (03:13→19:38)
[2018-05-24 04:57] LABS: Lactic Acid 3.9 (0.4-2.0)
[2018-05-24] MEDS: solu-MEDROL 125 MG IV SCH ×3 (05:55→17:51)
[2018-05-24] MEDS: Advair Hfa 230/21 Mcg COMMON CANISTER IH SCH ×2 (07:06→19:39)
[2018-05-24 07:41] LABS: Lactic Acid 5.2 (0.4-2.0)
[2018-05-24] MEDS: Lactated Ringers 1,000 ML IV SCH ×3 (08:29→13:05)
--- NOTE | 2018-05-24 09:13 | XRAY ---
Indication: Cough and dyspnea. Comparison: May 18, 2018. Portable chest again demonstrates normal heart, lungs, and bony thorax.
[2018-05-24 10:57] LABS: Lactic Acid 4.1 (0.4-2.0)
[2018-05-24] MEDS: Robitussin AC Syrup Unit Dose Cup PO PRN ×2 (11:56→21:04)
[2018-05-24] MEDS ORDERED: Lactated Ringers 1,000 ML IV SCH (12:00)
[2018-05-24] MEDS ORDERED: Lactated Ringers 500 ML IV ONE (13:00)
[2018-05-24 15:57] LABS: NT PRO BNP 20.2 pg/mL (0-450)
[2018-05-24 16:04] LABS: A-aADO2 16; ABG HEMOGLOBIN 14.2; ABG POTASSIUM 4.2 (3.5-5.1); ABG SITE RIGHT RADIAL; ALLEN TEST OK? YES; ARTERIAL BLD GAS O2 SATURATION 98.7 % (95-100); ARTERIAL BLOOD GAS BASE EXCESS -0.2 (-2.0-2.0); ARTERIAL BLOOD GAS FIO2 21 %; ARTERIAL BLOOD GAS PCO2 31 mmHg (35-45); ARTERIAL BLOOD GAS PO2 95 mmHg (75-100); ARTERIAL BLOOD GAS pH 7.47 (7.35-7.45); CARBOXYHEMOGLOBIN 1.8 % THgb (0.0-6.9); HCO3- 22.6 (22-28); HGB O2 SAT 95.3 g/dF (94-100); Methhemoglobin 1.7 % (1.4-1.5); paO2 pAO1 0.86
--- NOTE | 2018-05-24 16:15 | HP ---
HISTORY OF PRESENT ILLNESS: Paloma Peñaloza is a 27 year old woman with past medical history of asthma, chronic bronchitis, anxiety, depression, obesity. She was recently treated for symptoms of bronchitis twice as outpatient with p.o. antibiotics/steroids. She presented to the emergency room yesterday with persistent symptoms of increasing shortness of breath, wheezing, productive cough and chest congestion for the last four to five days. She states she has not had any improvement despite taking antibiotics/steroids as directed and had only one day course left on both of those. She also reported low grade fever with chills and wheezing along with above symptoms. Low grade fever with chills, chest tightness with above symptoms. Upon evaluation in the emergency room the patient was noted to have blood pressure 130/92, heart rate 117, respiratory rate 24 and temperature 99.1F. Oxygen saturation of 97%. Initial work up was notable for CBC with white blood cell count of 22.3. Lactic acid of 2.3. She was treated with Proventil nebulization, Levaquin 500 mg IV x1, normal saline 1 liter x1, Solu-Medrol 125 mg IV x1. Subsequently she was admitted to medical floor for further monitoring and management. Since admission she was continued on IV antibiotics/IV steroid nebulization. At the time of this evaluation she is alert, awake, complains of shortness of breath, chest congestion. Complains of occasional palpitations. Complains of productive cough, wheezing. Complains of fatigue. PAST MEDICAL HISTORY: As noted above. PAST SURGICAL HISTORY: Nasal surgery. MEDICATIONS: Current medications were reviewed. ALLERGIES: SULFA. LATEX. FAMILY HISTORY: Noncontributory. SOCIAL HISTORY: The patient is a former smoker, has exposure to secondhand smoke. REVIEW OF SYSTEMS: Denies headache or dizziness. Complains of fatigue. Complains of fever. Complains of chills. Denies chest pain. Complains of chest tightness. Complains of shortness of breath, wheezing. Complains of chest congestion, complains of productive cough, complains of palpitations. Denies abdominal pain, nausea or vomiting. Denies constipation or diarrhea. Denies urinary complaints. PHYSICAL EXAMINATION: A middle aged obese woman lying comfortably in bed, not in acute distress. VITAL SIGNS: Blood pressure 128/72, heart rate 123, respiratory rate 18, temperature 98.8F. Oxygen saturation 94% on room air. HEENT: Normocephalic. No pallor or icterus is noted. NECK: No JVD is present. CVS: S1, S2 present. Tachycardia present. RESPIRATORY: Breath sounds are bilaterally diminished, wheezing present. ABDOMEN: Obese, soft, nontender. NEURO: She is alert, oriented x3. EXTREMITIES: No edema on bilateral lower extremities. LABORATORY DATA AND TESTS: Labs on admission were notable for CBC with white blood cell of 22.3 otherwise unremarkable. D-dimer was less 215. Initial lactic acid was 2.7 and 3.9 and 5.2 and 4.1 and 4.4. CMP was essentially unremarkable except BUN 23, creatinine 0.67. Troponin was less than 0.012 x4. Urine HCG was negative. Flu A/B was negative. Respiratory syncytial virus was negative. Blood cultures are pending. EKG showed sinus rhythm per emergency room records. Chest x-ray was normal per emergency room records. ASSESSMENT: A 27 year old woman with impression: 1) Asthma with exacerbation. 2) Acute bronchopneumonia. 3) Tachycardia. 4) Anxiety. 5) Obesity. PLAN: The patient is admitted for further monitoring and management. Continue nebulization, IV steroids, IV antibiotic. In regards to tachycardia will obtain magnesium and will also obtain baseline ABG and BMP. The plan was discussed with the patient. She seems to be in understanding and agreement. Discussed with patient's nurse.
[2018-05-24] MEDS: LEVOFLOXACIN 750MG/150ML D5W 750 MG/150 ML BAG IV SCH (21:40)
[2018-05-25] MEDS: solu-MEDROL 125 MG IV SCH ×5 (00:26→23:20)
[2018-05-25] MEDS: Robitussin AC Syrup Unit Dose Cup PO PRN ×3 (05:17→18:06)
[2018-05-25 05:56] LABS: Hematocrit 40.2 % (35-47); Mean Cell Volume 87.8 fl (78-100); Mean Corpuscular Hemoglobin 28.4 pg (26-32); Mean Corpuscular Hgb Concent. 32.3 g/dl (32-36); Mean Platelet Volume 9.6 fl (6-9.5); Platelet Count 298 K/mm3 (150-450); Red Blood Count 4.58 M/mm3 (4.1-5.4); Red Cell Distribution Width 15.3 % (11.5-14.0); White Blood Count 21.3 K/mm3 (4.0-10.5)
[2018-05-25 06:44] LABS: BLOOD UREA NITROGEN 15 mg/dL (7-17); CHLORIDE 105 mmol/L (98-107); Calcium 9.3 mg/dL (8.4-10.2); Carbon Dioxide 23 mmol/L (22-30); Creatinine 1 0.43 mg/dL (0.52-1.04); Glucose 142 mg/dL (74-106); Potassium 4.3 mmol/L (3.5-5.1); SODIUM 137 mmol/L (137-145)
[2018-05-25] MEDS: DUONEB 0.5-3 MG/3 ml Neb IH SCH ×5 (07:01→19:28)
[2018-05-25] MEDS: Advair Hfa 230/21 Mcg COMMON CANISTER IH SCH ×2 (07:03→19:28)
[2018-05-25 07:41] LABS: Lymphocytes 7 % (24-44); Monocyte 2 % (0.0-12.0); Neutrophils 91 % (36.0-66.0); Total Cells Counted 100
[2018-05-25 07:43] LABS: Platelet Estimate NORMAL (NORMAL)
[2018-05-25] MEDS: Sodium Chloride 0.9% 1000 ML 1,000 ML IV SCH ×2 (07:57→21:18)
[2018-05-25] MEDS ORDERED: CHLORASEPTIC SPRAY 180 ML PO PRN (16:17)
[2018-05-25] MEDS: LEVOFLOXACIN 750MG/150ML D5W 750 MG/150 ML BAG IV SCH (21:19)
[2018-05-26] MEDS: TYLENOL 325 MG PO PRN ×3 (02:00→22:03)
[2018-05-26] MEDS: solu-MEDROL 125 MG IV SCH ×3 (05:45→21:53)
[2018-05-26] MEDS: DUONEB 0.5-3 MG/3 ml Neb IH SCH ×4 (07:08→20:02)
[2018-05-26] MEDS: Advair Hfa 230/21 Mcg COMMON CANISTER IH SCH ×2 (07:09→20:03)
[2018-05-26 08:50] LABS: Hematocrit 41.1 % (35-47); Hemoglobin 13.1 gm/dl (12.0-16.0); Mean Cell Volume 88.4 fl (78-100); Mean Corpuscular Hemoglobin 28.2 pg (26-32); Mean Corpuscular Hgb Concent. 31.9 g/dl (32-36); Mean Platelet Volume 9.6 fl (6-9.5); Platelet Count 270 K/mm3 (150-450); Red Blood Count 4.65 M/mm3 (4.1-5.4); Red Cell Distribution Width 15.7 % (11.5-14.0); White Blood Count 18.5 K/mm3 (4.0-10.5)
[2018-05-26 09:01] LABS: ALBUMIN 3.9 g/dL (3.5-5.0); ALKALINE PHOSPHATASE 135 U/L (38-126); ANION GAP 16.2 MEQ/L (5-15); BLOOD UREA NITROGEN 19 mg/dL (7-17); CHLORIDE 105 mmol/L (98-107); Calcium 9.2 mg/dL (8.4-10.2); Carbon Dioxide 23 mmol/L (22-30); Creatinine 1 0.53 mg/dL (0.52-1.04); Glucose 216 mg/dL (74-106); Potassium 4.4 mmol/L (3.5-5.1); SGOT/AST 33 U/L (14-36); SODIUM 139 mmol/L (137-145); Total Protein 6.7 g/dL (6.3-8.2)
[2018-05-26 09:17] LABS: SGPT/ALT 57 U/L (0-35)
--- NOTE | 2018-05-26 09:50 | PROG NOTE ---
DATE: 05/25/2018 Chart is reviewed and events noted. HISTORY: At the time of this evaluation the patient is alert, awake and comfortable. States that shortness of breath is somewhat better. Complains of sore throat and nasal congestion. She has been having some cough. Appears comfortable. PHYSICAL EXAMINATION: VITAL SIGNS: Blood pressure 107/56, heart rate 88, respiratory rate 16, temperature 98F. Oxygen saturation 96% on room air. HEENT: Normocephalic. No pallor or icterus is noted. Mild tenderness present on sinuses. Mild erythema of throat present. NECK: No JVD is present. CVS: S1, S2 present. RESPIRATORY: Breath sounds are bilaterally diminished, clear to auscultation. ABDOMEN: Obese, soft, nontender. NEURO: She is alert, oriented x3. EXTREMITIES: No edema on bilateral lower extremities. LABORATORY DATA AND TESTS: Labs from today show CBC with white blood cell 21.3, otherwise unremarkable. ABG from yesterday showed pH of 7.47, pCO2 of 31, pO2 of 95. Today's BMP essentially unremarkable except glucose of 142. NT-BMP was 20.2. Medications were reviewed. ASSESSMENT: A 27 year old woman with impression: 1) Asthma exacerbation clinically improving. 2) Acute bronchopneumonia. 3) Anxiety. 4) Obesity. 5) Acute upper respiratory tract infection. PLAN: Continue current management. Taper steroids as tolerated. Continue antibiotic. Addition of decongestant and Cepacol lozenges. The plan was discussed with patient and family. Their questions were answered in detail. They seem to be understanding and agreement. Discussed with patient's nurse, Cindy.
[2018-05-26 13:44] LABS: Lymphocytes 7 % (24-44); Monocyte 4 % (0.0-12.0); Neutrophils 89 % (36.0-66.0); Total Cells Counted 100
[2018-05-26 13:45] LABS: ANISOCYTOSIS 1+; Platelet Estimate NORMAL (NORMAL)
[2018-05-26] MEDS: Sodium Chloride 0.9% 1000 ML 1,000 ML IV SCH (14:11)
--- NOTE | 2018-05-26 15:28 | PROG NOTE ---
DATE: 05/26/2018 Chart is reviewed and events noted. At the time of this evaluation the patient is alert, awake and comfortable. States the shortness of breath is somewhat better, still having some sore throat and nasal drainage. Appears comfortable. PHYSICAL EXAMINATION: VITAL SIGNS: Blood pressure 122/67, heart rate 102, respiratory rate 18, temperature 98.1F. Oxygen saturation 96% on room air. HEENT: No pallor or icterus is noted. NECK: No JVD is present. CVS: S1, S2 present. RESPIRATORY: Breath sounds are bilaterally diminished. ABDOMEN: Obese, soft, nontender. NEURO: She is alert, oriented x3. EXTREMITIES: No edema on bilateral lower extremities. LABORATORY DATA AND TESTS: Labs from today show CBC with white blood cell 18.5, hemoglobin 13.1, hematocrit 41.1, PLT 270,000, neutrophils 89, lymphocytes 7. CMP showed BUN of 19, creatinine 0.53. Glucose 135. Blood cultures showed no growth so far. Medications were reviewed. ASSESSMENT: A 27 year old woman with impression: 1) Asthma with exacerbation. 2) Acute bronchopneumonia. 3) Upper respiratory tract infection. 4) Anxiety. 5) Obesity. PLAN: Continue antibiotics. Will obtain CT scan of sinuses and chest in view of patient's symptoms. Advance diet as tolerated. Ambulation if tolerated. Likely discharge in one to two days. Possible consideration for IV antibiotics as outpatient. The plan was discussed with the patient and family. They seem to be in understanding and agreement. Discussed with case maker, Felisha.
--- NOTE | 2018-05-26 15:54 | XRAY ---
Indication: Bronchial pneumonia. Sore throat, cough, congestion, and short of breath. Multiple contiguous axial images obtained through the chest without contrast as ordered. Comparison: None Lungs are inflated with minimal bilateral dependent atelectasis and minimal bibasilar fibrosis/scarring. No suspicious pulmonary mass, infiltrate, or effusion. Heart is not enlarged. Aorta is normal in course and caliber. No pathologic mediastinal lymphadenopathy. Bony thorax intact with minimal degenerative changes throughout the spine. There is a 2 cm noncalcified left breast mass. Limited upper abdomen demonstrates diffuse fatty liver, fatty replaced pancreas, and scattered colonic diverticulosis. Impression: 1. Essentially negative CT chest without contrast exam. 2. Incidental fatty liver, fatty replaced pancreas, and colonic diverticulosis. 3. 2 cm noncalcified left breast mass. Breast ultrasound recommended. CT DI 35.17
--- NOTE | 2018-05-26 15:56 | XRAY ---
Indication: Sore throat, cough, congestion, and sinus infection. Multiple contiguous axial images obtained through the paranasal sinuses. Sagittal and coronal reformatted images obtained. Comparison: None Paranasal sinuses including ostiomeatal units and nasal passages are clear. No significant nasal septal deviation. Visualized osseous structures intact. No suspicious bony lesions or radiopaque foreign body. Visualized noncontrasted soft tissues including orbits and base of the brain unremarkable. Impression: Negative CT sinuses. CTDI 55.75
[2018-05-26] MEDS: LEVOFLOXACIN 750MG/150ML D5W 750 MG/150 ML BAG IV SCH (21:53)
[2018-05-27] MEDS: solu-MEDROL 125 MG IV SCH ×3 (05:56→21:50)
[2018-05-27] MEDS: Sodium Chloride 0.9% 1000 ML 1,000 ML IV SCH ×2 (05:56→19:52)
[2018-05-27 05:57] LABS: Hematocrit 38.1 % (35-47); Hemoglobin 12.1 gm/dl (12.0-16.0); Mean Cell Volume 88.8 fl (78-100); Mean Corpuscular Hemoglobin 28.2 pg (26-32); Mean Corpuscular Hgb Concent. 31.8 g/dl (32-36); Mean Platelet Volume 9.8 fl (6-9.5); Platelet Count 241 K/mm3 (150-450); Red Blood Count 4.29 M/mm3 (4.1-5.4); Red Cell Distribution Width 15.7 % (11.5-14.0); White Blood Count 15.2 K/mm3 (4.0-10.5)
[2018-05-27] MEDS: TYLENOL 325 MG PO PRN ×3 (06:41→22:50)
[2018-05-27 06:58] LABS: Lymphocytes 6 % (24-44); Monocyte 3 % (0.0-12.0); Neutrophils 91 % (36.0-66.0); Platelet Estimate NORMAL (NORMAL); Total Cells Counted 100
[2018-05-27] MEDS: DUONEB 0.5-3 MG/3 ml Neb IH SCH ×4 (07:22→18:54)
[2018-05-27] MEDS: Advair Hfa 230/21 Mcg COMMON CANISTER IH SCH ×2 (07:23→18:55)
[2018-05-27] MEDS: LEVOFLOXACIN 750MG/150ML D5W 750 MG/150 ML BAG IV SCH (21:50)
[2018-05-27] MEDS ORDERED: Lasix 20 MG/2 ML IV ONE (22:45)
[2018-05-28] MEDS ORDERED: solu-MEDROL 125 MG ONE (05:57)
[2018-05-28] MEDS: TYLENOL 325 MG PO PRN (06:00)
[2018-05-28] MEDS: solu-MEDROL 125 MG IV SCH (06:00)
[2018-05-28] MEDS ORDERED: Sodium Chloride 0.9% 10 ML FLUSH Syringe IV PRN (06:30)
[2018-05-28 07:39] VITALS: BP 144/78; PULSE 70; O2SAT 93
--- NOTE | 2018-05-28 08:00 | PROG NOTE ---
DATE: 05/27/2018 Chart is reviewed and events noted. At the time of this evaluation the patient said that shortness of breath is improving. She stated she ambulated earlier today. Cough is getting better as well. Appears comfortable. Indicates she would like to stay another night "just to be safe side". Appears comfortable. PHYSICAL EXAMINATION: VITAL SIGNS: Blood pressure 132/73, heart rate 94, respiratory rate 18, temperature 98.1F. Oxygen saturation 94%. HEENT: No pallor is present. NECK: No JVD is present. CVS: S1, S2 present. RESPIRATORY: Breath sounds are bilaterally reduced, bilaterally diminished, clear to auscultation. ABDOMEN: Obese, soft, nontender. NEURO: She is alert, oriented x3. EXTREMITIES: No edema on bilateral lower extremities. LABORATORY DATA AND TESTS: Labs from today show CBC with white blood cell of 15.2, hemoglobin 12.1, hematocrit 38.1, PLT 241,000, neutrophils 91, lymphocytes 6. CT scan of chest from 05/26/2018 was negative. It did show 2 cm noncalcified left breast mass. CT scan of sinuses was negative. Medications were reviewed. ASSESSMENT: A 27 year old woman with impression: 1) Asthma with exacerbation, clinically improving. 2) Acute bronchial pneumonia, resolving. 3) Upper respiratory infection. 4) Anxiety. 5) Left breast mass. 6) Obesity. PLAN: Continue to taper steroids. Discussed with patient regarding possible discharge today as noted earlier. The patient stated that she would like to stay another day. Continue ambulation as tolerated. Continue antibiotics. Left breast ultrasound as outpatient. Discussed with patient and mother that this will not be covered due to current diagnosis that she was admitted with. Discharge tomorrow a.m. if she is continues to improve. The patient's clinical condition, work-up results and plan of management as noted was discussed with the patient and mother. They seem to be in understanding and agreement. Discussed with charge nurse, Brittney.
--- NOTE | 2018-05-28 09:32 | DS ---
DISCHARGE DIAGNOSES: 1) ASTHMA WITH EXACERBATION, CLINICALLY IMPROVING. 2) ACUTE BRONCHOPNEUMONIA, RESOLVING. 3) UPPER RESPIRATORY TRACT INFECTION, RESOLVING. 4) LEFT BREAST MASS. 5) ANXIETY. 6) OBESITY. HOSPITAL COURSE: Paloma Peñaloza is a 27 year-old woman with past medical history of asthma, anxiety and obesity. She was recently treated for symptoms of bronchitis as outpatient with p.o. antibiotics/steroids. She was admitted through emergency room on 05/23/2018 with recurrence of symptoms of shortness of breath, wheezing, chest congestion for four to five days and had not reported any improvement despite outpatient treatment. Please refer to history and physical for details. She reported low grade fever. Lab work up was notable for elevated lactic acid. White blood cell count of 22.3. D-dimer was negative. She was noted to be tachycardic. Troponin was less than 0.012 x4. Urine HCG was negative. Flu A/B was negative. Respiratory syncytial virus was negative. Blood cultures remained negative. EKG showed sinus rhythm per emergency room records. Chest x-ray was normal. The patient was treated per sepsis protocol. She was placed on IV fluids, broad spectrum IV antibiotics, IV steroids. She was placed on nebulization. ABG showed pH of 7.47, pCO2 of 31, pO2 of 95. NT-BNP was within normal limits. Further labs did show gradual improvement in her white blood cell count. She did have symptoms of sore throat and nasal congestion. Cepacol lozenges/decongestants were added. During her further course steroids were gradually tapered. Eventually due to persistent symptoms she underwent CT chest on 05/26/2018 which showed essentially negative. It did show a 2 cm noncalcified left breast mass for which breast ultrasound has been recommended (that will be scheduled as outpatient). She also underwent CT sinuses on 05/26/2018 which was essentially negative. The rest of her course essentially more or less unremarkable. She improved clinically. Otherwise remained hemodynamically stable. She ambulated with stable oxygen saturation. As noted earlier steroids were gradually tapered. She otherwise improved clinically. She ambulated with stable oxygen saturations. She was otherwise feeling well and was wishing to go home. Her symptoms of chest congestion, upper respiratory symptoms resolving as well. She otherwise improved clinically and is feeling well and wishing to go home. She is being discharged home in stable condition. Please refer to discharge medication list from 05/27/2018 for details of medications on discharge. The patient was advised to start discharge medications as directed. She was advised to drink p.o. fluids. She was advised to continue nebulization as directed. Compliance with diet and medications were stressed. Complete cessation of smoking was stressed. The patient states she is not able to return to work on her scheduled shift on 05/28/2018. I have advised the patient she may return to work without restrictions on her scheduled shift on 05/31/2018 provided she continues to improve. Work slip to that effect was given to patient. I have advised the patient that she does need to follow with me in one week. Repeat CMP and CBC will be obtained in one week. I have advised the patient that she needs to return to the Emergency [facility] if any new signs and symptoms or reappearance of previous signs and symptoms are noted. As noted earlier the patient's breast ultrasound is being scheduled as outpatient. The patient was advised to follow up for that appointment. Findings of above abnormality on CT chest and need for obtaining above diagnostic testing as well as importance of need for compliance following that diagnostic test discussed with patient and her mother. The patient agrees to follow up with that. The patient advised to follow up for scheduled testing as advised. The patient's clinical condition, work-up results and plan of management and plan after discharge was discussed with patient and her family. They seem to be in understanding and agreement of same. Their questions were answered in detail. The patient and family verbalized understanding of discussion and agreement of treatment plan and plan after discharge. Please refer to the patient's chart, labs, diagnostic work up results and consult notes for details. The patient will continue to follow up with pulmonary as outpatient.
[2018-05-28] MEDS ORDERED: Sodium Chloride 0.9% 10 ML FLUSH Syringe IV SCH (14:00)
[2018-05-28] MEDS ORDERED: solu-MEDROL 40 MG IV SCH (14:00)
== END 2018-05-28 08:50 | disposition home or self-care (01) | DRG 202 ==
LOC: ED 22:02 → OBSVTOIN 05-24 01:47 → MED SURG 05-24 01:47
PROVIDERS: ADMIT General Practice; ATTEND General Practice
DX: J45.901 Unspecified asthma with (acute) exacerbation (principal); J18.0 Bronchopneumonia, unspecified organism; J06.9 Acute upper respiratory infection, unspecified; N63.0 Unspecified lump in unspecified breast; F41.9 Anxiety disorder, unspecified; E66.9 Obesity, unspecified; R00.0 Tachycardia, unspecified
CPT/HCPCS: 36000; 36415; 36600; 70486; 71045; 71250; 80048; 80053; 82375; 82803; 83605; 83735; 83880; 84484; 84703; 85025; 85379; 85610; 87040; 87631; 93005; 94150; 94640; 94760; 96360; 96361; 96365; 96374; 99285; J1940; J1956; J2930; A9270-GY

== ENCOUNTER 2018-09-17 13:25 | Emergency (ER) | payer OTHER ==
[2018-09-17 13:53] VITALS: BP 119/84; PULSE 58; O2SAT 96
--- NOTE | 2018-09-17 14:06 | ERPHSYRPT ---
- History of Present Illness Time Seen by Provider: 09/17/18 13:45 Source: patient Exam Limitations: clinical condition Patient Subjective Stated Complaint: states has had two nosebleeds today since 0800. released from hospital yesterday after having influenza and pneumonia. is on antibiotics and tamilfu. Triage Nursing Assessment: ambulated to room per self. skin w/d, color normal, resp nonlabored. small trickle of blood noted from right nares. nose clamp placed on nose. Physician History: PATIENT WITH A HISTORY OF RECURRENT PNEUMONIA, ASTHMA COMPLAINS OF NOSEBLEEDS FROM RIGHT NARES X 2 EPISODES SINCE 8AM TODAY. DENIES NASAL TRAUMA OR INJURY. DENIES DIZZINESS, LIGHTHEADNEDNESS OR WEAKNESS. Timing/Duration: gradual onset Severity: moderate ENT Location: nose Prearrival Treatment: no prearrival treatment Modifying Factors: Improves With: activity Associated Symptoms: epistaxis Allergies/Adverse Reactions: Sulfa (Sulfonamide Antibiotics) Allergy (Intermediate, Verified 05/24/18 02:04) Rash latex Allergy (Verified 05/24/18 02:04) Home Medications: Budesonide/Formoterol Fumarate [Symbicort 160-4.5 Mcg Inhaler] 2 puffs IH BID [History] Benzonatate 200 mg PO TID 09/17/18 [History] Cefdinir 300 mg PO BID 09/17/18 [History] Oseltamivir Phosphate 75 mg PO BID 09/17/18 [History] Hx Tetanus, Diphtheria Vaccination/Date Given: Yes Hx Influenza Vaccination/Date Given: No Hx Pneumococcal Vaccination/Date Given: No - Review of Systems Constitutional: No Symptoms Eyes: No Symptoms Ears, Nose, & Throat: Epistaxis Respiratory: No Symptoms Cardiac: No Symptoms Neurological: No Symptoms Psychological: No Symptoms - Past Medical History Pertinent Past Medical History: Yes Neurological History: No Pertinent History ENT History: No Pertinent History Cardiac History: No Pertinent History Respiratory History: Asthma, Bronchitis, Pneumonia Endocrine Medical History: No Pertinent History Musculoskeletal History: No Pertinent History GI Medical History: No Pertinent History History: No Pertinent History Psycho-Social History: Anxiety, Bipolar, Depression Female Reproductive Disorders: No Pertinent History - Past Surgical History Past Surgical History: Yes Neuro Surgical History: No Pertinent History Cardiac: No Pertinent History Respiratory: No Pertinent History Gastrointestinal: No Pertinent History Genitourinary: No Pertinent History Musculoskeletal: No Pertinent History Female Surgical History: No Pertinent History Other Surgical History: nasal 2011 - Social History Smoking Status: Former smoker How long have you smoked: 8-9 years Exposure to second hand smoke: Yes Drug Use: none Patient Lives Alone: No - Female History Hx Now: No - Nursing Vital Signs Nursing Vital Signs: Initial Vital Signs Temperature 97.7 F 09/17/18 13:30 Pulse Rate 58 L 09/17/18 13:30 Respiratory Rate 18 09/17/18 13:30 Blood Pressure 119/84 09/17/18 13:30 O2 Sat by Pulse Oximetry 96 09/17/18 13:30 Pain Scale Pain Intensity 0 - Physical Exam General Appearance: no apparent distress Eye Exam: bilateral eye: normal inspection, PERRL, EOMI Ear Exam: bilateral ear: auricle normal, canal normal, TM normal Nasal Exam: dried blood (RIGHT NARES) Throat Exam: normal, pharynx normal (NO POST PHARYNGEAL HEMORRHAGE) Neck Exam: normal inspection, non-tender, supple Cardiovascular/Respiratory Exam: chest non-tender, normal breath sounds SpO2 Interpretation: normal SpO2: 96 Ordered Tests: Active Orders 24 hr Category Date Time Status CBC W DIFF Stat Lab 09/17/18 14:14 Completed Manual Differential NC Stat Lab 09/17/18 14:14 Completed PROTIME WITH INR Stat Lab 09/17/18 14:14 Completed Lab/Rad Data: Laboratory Result Diagrams 09/17/18 14:14 Laboratory Results 09/17/18 09/17/18 Range/Units 14:14 14:14 WBC 10.4 (4.0-10.5) K/mm3 RBC 4.62 (4.1-5.4) M/mm3 Hgb 12.8 (12.0-16.0) gm/dl Hct 40.4 (35-47) % MCV 87.4 (78-100) fl MCH 27.7 (26-32) pg MCHC 31.7 L (32-36) g/dl RDW 13.8 (11.5-14.0) % Plt Count 191 (150-450) K/mm3 MPV 9.7 H (6-9.5) fl Absolute Granulocytes 8.11 H (1.4-6.9) Segmented Neutrophils 75 H (36.0-66.0) % Band Neutrophils 3 H (0.0-2.0) % Lymphocytes (Manual) 19 L (24-44) % Monocytes (Manual) 3 (0.0-12.0) % Platelet Estimate NORMAL (NORMAL) RBC Morphology ABNORMAL Polychromasia RARE PT 11.7 (9.95-12.35) SECONDS INR 1.01 (0.8-3.0) - Progress Progress Note: 09/17/18 14:29 LABS REVIEWED CBC AND INR ARE NORMAL 09/17/18 14:29 AFTER CLEARING CLOTS BY BLOWING NOSE NO EVIDENCE OF EPISTAXIS 09/17/18 14:57, AFTER OBSERVATION FOR 90 MINUTES, NO EVIDENCE OF EPISTAXIS Counseled pt/family regarding: lab results, diagnosis, need for follow-up - Departure Time of Disposition: 15:15 Departure Disposition: Home Clinical Impression: EPISTAXIS RIGHT NARES RESOLVED Condition: Stable Critical Care Time: No Referrals: EDGARDO MEDINA [Primary Care Provider] - Additional Instructions: COAT YOUR RIGHT NARES WITH VASOLINE 3-4 TIMES DAILY AND APPLY AFRIN NASAL SPRAY , 2 SPRAYS TO RIGHT NARES 4 TIMES DAILY FOR 5 DAYS. CONSULT YOUR PRIMARY CARE PROVIDER FOR FOLLOWUP IN 1 WEEK. RETURN TO EMERGENCY ROOM FOR NOSEBLEEDS. Prescriptions: Oxymetazoline HCl Nasal [Afrin Nasal [place]] 2 sprays NS QID #1 bottle
[2018-09-17 14:15] LABS: Hematocrit 40.4 % (35-47); Hemoglobin 12.8 gm/dl (12.0-16.0); Mean Cell Volume 87.4 fl (78-100); Mean Corpuscular Hemoglobin 27.7 pg (26-32); Mean Corpuscular Hgb Concent. 31.7 g/dl (32-36); Mean Platelet Volume 9.7 fl (6-9.5); Platelet Count 191 K/mm3 (150-450); Red Blood Count 4.62 M/mm3 (4.1-5.4); Red Cell Distribution Width 13.8 % (11.5-14.0); White Blood Count 10.4 K/mm3 (4.0-10.5)
[2018-09-17 14:34] LABS: BAND 3 % (0.0-2.0); INR 1.01 (0.8-3.0); Lymphocytes 19 % (24-44); Monocyte 3 % (0.0-12.0); Neutrophils 75 % (36.0-66.0); PROTIME 11.7 SECONDS (9.95-12.35); Total Cells Counted 100
[2018-09-17 14:35] LABS: Platelet Estimate NORMAL (NORMAL); Polychromasia RARE
[2018-09-17 14:37] LABS: Granulocyte Absolute (ANC) 8.11 (1.4-6.9)
== END 2018-09-17 15:26 | disposition home or self-care (01) ==
LOC: ED 13:25
DX: R04.0 Epistaxis (principal); Z79.899 Other long term (current) drug therapy
CPT/HCPCS: 36415; 85025; 85610; 99283

== ENCOUNTER 2018-09-20 07:11 | Emergency (ER) | payer OTHER ==
--- NOTE | 2018-09-20 07:38 | ERPHSYRPT ---
- History of Present Illness Time Seen by Provider: 09/20/18 07:25 Source: patient, family Exam Limitations: no limitations Patient Subjective Stated Complaint: STATES HAS BEEN GETTING INCREASINGLY SOB OVER THE PAST TWO DAYS. RECENT HX OF INFLUENZA A AND PNEUMONIA WITH ADMISSION TO A LOCAL HOSPITAL ON 09/13/18. WAS SEEN IN THIS ED ON 09/17/18 FOR MINOR NOSEBLEED THAT RESOLVED. ALSO STATES SHE HAS SHARP CHEST DISCOMFORT WHEN SHE COUGHS. STATES IS USING NEBS AT HOME WITHOUT RELIEF AND USED IT LAST YESTERDAY EVENING. Triage Nursing Assessment: TO ROOM PER W/C. COLOR FLUSHED, RESP SLIGHTLY LABORED. WHEEZES HEARD. SAT 98% RA. Physician History: 28 y/o obese white female with h/o asthma and bronchitis presents with increasing soa over last 2 days. pt was dx with pneumonia 4 days ago and placed on cefdinir, prednisone, and tessalon perles. pts room air oxygenation sat are 98% Timing/Duration: day(s) (2) Activities at Onset: none Severity of Dyspnea-Max: moderate Severity of Dyspnea-Current: moderate Possible Cause: occasional episodes Modifying Factors: Improves With: activity Associated Symptoms: wheezing, productive cough Allergies/Adverse Reactions: Sulfa (Sulfonamide Antibiotics) Allergy (Intermediate, Verified 09/20/18 07:34) Rash latex Allergy (Verified 05/24/18 02:04) Home Medications: Benzonatate 200 mg PO TID 09/17/18 [History] Cefdinir 300 mg PO BID 09/17/18 [History] Albuterol 2.5 mg/3 ml Neb [Proventil 2.5 mg/3 ml Neb] 2.5 mg IH UD [History] Methylprednisolone Packet [Medrol Dosepack] 4 mg PO UD 09/20/18 [History] Hx Tetanus, Diphtheria Vaccination/Date Given: Yes Hx Influenza Vaccination/Date Given: No Hx Pneumococcal Vaccination/Date Given: No - Review of Systems Constitutional: No Symptoms Eyes: No Symptoms Ears, Nose, & Throat: No Symptoms Respiratory: Cough, Dyspnea, Wheezing Cardiac: No Symptoms Abdominal/Gastrointestinal: No Symptoms Genitourinary Symptoms: No Symptoms Musculoskeletal: No Symptoms Skin: No Symptoms Neurological: No Symptoms Psychological: No Symptoms Endocrine: No Symptoms Hematologic/Lymphatic: No Symptoms Immunological/Allergic: No Symptoms All Other Systems: Reviewed and Negative - Past Medical History Pertinent Past Medical History: Yes Neurological History: No Pertinent History ENT History: No Pertinent History Cardiac History: No Pertinent History Respiratory History: Asthma, Bronchitis, Pneumonia Endocrine Medical History: No Pertinent History Musculoskeletal History: No Pertinent History GI Medical History: No Pertinent History History: No Pertinent History Psycho-Social History: Anxiety, Bipolar, Depression Female Reproductive Disorders: No Pertinent History - Past Surgical History Past Surgical History: Yes Neuro Surgical History: No Pertinent History Cardiac: No Pertinent History Respiratory: No Pertinent History Gastrointestinal: No Pertinent History Genitourinary: No Pertinent History Musculoskeletal: No Pertinent History Female Surgical History: No Pertinent History Other Surgical History: nasal 2012 - Social History Smoking Status: Former smoker How long have you smoked: 8-9 years Exposure to second hand smoke: Yes Drug Use: none Patient Lives Alone: No - Female History Hx Last Menstrual Period: 08/08/18 Hx Now: No - Nursing Vital Signs Nursing Vital Signs: Initial Vital Signs Temperature 97.6 F 09/20/18 07:12 Pulse Rate 50 L 09/20/18 07:12 Respiratory Rate 26 H 09/20/18 07:12 Blood Pressure 132/91 09/20/18 07:12 O2 Sat by Pulse Oximetry 98 09/20/18 07:12 Pain Scale Pain Intensity 2 - Physical Exam General Appearance: moderate distress, alert, anxiety Eye Exam: PERRL/EOMI Ears, Nose, Throat Exam: hearing grossly normal Neck Exam: normal inspection, non-tender, supple, full range of motion Respiratory Exam: normal breath sounds, lungs clear, airway intact, No chest tenderness, No respiratory distress, No accessory muscle use, No rhonchi, No wheezing, No stridor Cardiovascular/Chest Exam: normal heart sounds, regular rate/rhythm, murmur Abdominal/Gastrointestinal Exam: soft, normal bowel sounds, No tenderness, No guarding Rectal Exam: deferred Extremity Exam: non-tender, normal range of motion, normal inspection Neurologic Exam: alert, oriented x 3, cooperative, irb compliance coordinator II-XII nml as tested Skin Exam: normal color, warm, dry Lymphatic Exam: No adenopathy SpO2 Interpretation: normal SpO2: 98 O2 Delivery: Room Air - Course Nursing assessment & vital signs reviewed: Yes EKG Interpreted by Me: RATE (55), NORMAL AXIS, NORMAL INTERVALS, NORMAL QRS, Non -specific ST Changes, Other (no change from ekg dated 05/24/18) Ordered Tests: Active Orders 24 hr Category Date Time Status Alcohol And Drug Counselor STAT Care 09/20/18 07:40 Active EKG-ER Only STAT Care 09/20/18 07:39 Active IV Insertion STAT Care 09/20/18 07:39 Active Pulse Oximetry (ED) STAT Care 09/20/18 07:39 Active CHEST 1 VIEW (PORTABLE) Stat Exams 09/20/18 07:40 Completed BLOOD CULTURE Stat Lab 09/20/18 08:00 Received CBC W DIFF Stat Lab 09/20/18 07:53 Completed CMP Stat Lab 09/20/18 07:53 Completed D-DIMER QUANTITATION Stat Lab 09/20/18 07:53 Completed Lactic Acid Stat Lab 09/20/18 08:00 Results Manual Differential NC Stat Lab 09/20/18 07:53 Completed NT PRO BNP Stat Lab 09/20/18 07:53 Completed Medication Summary Generic Name Dose Route Start Last Admin Trade Name Freq PRN Reason Stop Dose Admin Azithromycin 500 mg in 250 mls @ 250 mls/hr 09/20/18 09:04 09/20/18 09:20 Zithromax 500 Mg/ 250 Ml Nacl Premix IV 09/20/18 10:03 250 mls/hr STAT ONE Administration Discontinued Medications Generic Name Dose Route Start Last Admin Trade Name Freq PRN Reason Stop Dose Admin Hydrocodone Bitart/Acetaminophen 10 ml 09/20/18 07:41 09/20/18 08:13 Hydrocodone-Acetamin 2.5-108/5 Ml Solution PO 09/20/18 07:42 10 ml STAT STA Administration Hydrocodone Bitart/Acetaminophen Confirm 09/20/18 08:08 Hydrocodone-Acetamin 2.5-108/5 Ml Solution Administered 09/20/18 08:09 Dose 10 ml .ROUTE .STK-MED ONE Azithromycin Confirm 09/20/18 09:15 Zithromax 500 Mg/ 250 Ml Nacl Premix Administered 09/20/18 09:16 Dose 500 mg in 250 mls @ ud IV .STK-MED ONE Methylprednisolone Sodium Succinate 125 mg 09/20/18 07:39 09/20/18 08:13 Solu-Medrol 125 Mg IV 09/20/18 07:40 125 mg STAT ONE Administration Methylprednisolone Sodium Succinate Confirm 09/20/18 08:08 Solu-Medrol 125 Mg Administered 09/20/18 08:09 Dose 125 mg .ROUTE .STK-MED ONE Lab/Rad Data: Laboratory Result Diagrams 09/20/18 07:53 09/20/18 07:53 Laboratory Results 09/20/18 09/20/18 09/20/18 Range/Units 08:00 07:53 07:53 WBC (4.0-10.5) K/mm3 RBC (4.1-5.4) M/mm3 Hgb (12.0-16.0) gm/dl Hct (35-47) % MCV (78-100) fl MCH (26-32) pg MCHC (32-36) g/dl RDW (11.5-14.0) % Plt Count (150-450) K/mm3 MPV (6-9.5) fl D-Dimer 371 (215-500) ng/mL Sodium 139 (137-145) mmol/L Potassium 3.9 (3.5-5.1) mmol/L Chloride 103 (98-107) mmol/L Carbon Dioxide 25 (22-30) mmol/L Anion Gap 13.8 (5-15) MEQ/L BUN 15 (7-17) mg/dL Creatinine 0.51 L (0.52-1.04) mg/dL Estimated GFR > 60.0 ML/MIN Glucose 112 H (74-106) mg/dL Lactic Acid 2.6 H (0.4-2.0) Calcium 8.7 (8.4-10.2) mg/dL Total Bilirubin 0.40 (0.2-1.3) mg/dL AST 20 (14-36) U/L ALT 44 H (0-35) U/L Alkaline Phosphatase 143 H (38-126) U/L NT-Pro-B Natriuret Pep 143 (0-450) pg/mL Serum Total Protein 6.7 (6.3-8.2) g/dL Albumin 3.6 (3.5-5.0) g/dL 09/20/18 Range/Units 07:53 WBC 16.1 H (4.0-10.5) K/mm3 RBC 4.84 (4.1-5.4) M/mm3 Hgb 13.4 (12.0-16.0) gm/dl Hct 41.6 (35-47) % MCV 86.0 (78-100) fl MCH 27.7 (26-32) pg MCHC 32.2 (32-36) g/dl RDW 14.1 H (11.5-14.0) % Plt Count 312 (150-450) K/mm3 MPV 9.9 H (6-9.5) fl D-Dimer (215-500) ng/mL Sodium (137-145) mmol/L Potassium (3.5-5.1) mmol/L Chloride (98-107) mmol/L Carbon Dioxide (22-30) mmol/L Anion Gap (5-15) MEQ/L BUN (7-17) mg/dL Creatinine (0.52-1.04) mg/dL Estimated GFR ML/MIN Glucose (74-106) mg/dL Lactic Acid (0.4-2.0) Calcium (8.4-10.2) mg/dL Total Bilirubin (0.2-1.3) mg/dL AST (14-36) U/L ALT (0-35) U/L Alkaline Phosphatase (38-126) U/L NT-Pro-B Natriuret Pep (0-450) pg/mL Serum Total Protein (6.3-8.2) g/dL Albumin (3.5-5.0) g/dL - Progress Progress: improved Air Movement: good Progress Note: 09/20/18 09:40 cxr-no acute process. Blood Culture(s) Obtained: Yes Antibiotics given: Yes Counseled pt/family regarding: lab results, diagnosis, need for follow-up - Departure Time of Disposition: 09:41 Departure Disposition: Home Clinical Impression: Bronchitis Condition: Stable Critical Care Time: No Referrals: AMIE RUSSELL [Primary Care Provider] - Additional Instructions: drink plenty of fluids. continue your antibiotics and your steroids. follow up with your primary doctor for further management Prescriptions: Hydrocodone Bit/Acetaminophen [Hydrocodone-Acetaminophen Soln] 10 ml PO Q6H # 120 ml
[2018-09-20] MEDS ORDERED: solu-MEDROL 125 MG IV ONE (07:39)
[2018-09-20] MEDS ORDERED: HYDROCODONE-ACETAMIN 2.5-108/5 ML SOLUTION PO STA (07:41)
[2018-09-20 08:02] LABS: Lactic Acid 2.6 (0.4-2.0)
[2018-09-20] MEDS ORDERED: HYDROCODONE-ACETAMIN 2.5-108/5 ML SOLUTION ONE (08:08)
[2018-09-20] MEDS ORDERED: solu-MEDROL 125 MG ONE (08:08)
[2018-09-20 08:15] LABS: Hematocrit 41.6 % (35-47); Hemoglobin 13.4 gm/dl (12.0-16.0); Mean Corpuscular Hemoglobin 27.7 pg (26-32); Mean Corpuscular Hgb Concent. 32.2 g/dl (32-36); Mean Platelet Volume 9.9 fl (6-9.5); Platelet Count 312 K/mm3 (150-450); Red Blood Count 4.84 M/mm3 (4.1-5.4); Red Cell Distribution Width 14.1 % (11.5-14.0); White Blood Count 16.1 K/mm3 (4.0-10.5)
[2018-09-20 08:33] LABS: ALBUMIN 3.6 g/dL (3.5-5.0); ALKALINE PHOSPHATASE 143 U/L (38-126); ANION GAP 13.8 MEQ/L (5-15); BLOOD UREA NITROGEN 15 mg/dL (7-17); CHLORIDE 103 mmol/L (98-107); Calcium 8.7 mg/dL (8.4-10.2); Carbon Dioxide 25 mmol/L (22-30); Creatinine 1 0.51 mg/dL (0.52-1.04); Glucose 112 mg/dL (74-106); NT PRO BNP 143 pg/mL (0-450); Potassium 3.9 mmol/L (3.5-5.1); SGOT/AST 20 U/L (14-36); SGPT/ALT 44 U/L (0-35); SODIUM 139 mmol/L (137-145); Total Protein 6.7 g/dL (6.3-8.2)
[2018-09-20] MEDS ORDERED: Zithromax 500 MG/ 250 ML NaCl Premix 500 MG/250 ML IVPB IV ONE ×2 (09:04→09:15)
--- NOTE | 2018-09-20 09:39 | XRAY ---
Indication: Cough and short of breath. Comparison: July 17, 2018. Portable chest is clear. Heart and mediastinal structures within normal limits for AP portable technique. No new/acute findings. Impression: Nonacute chest.
[2018-09-20 10:13] VITALS: BP 110/72; PULSE 84; O2SAT 97
[2018-09-20 10:59] LABS: Lymphocytes 13 % (24-44); Monocyte 4 % (0.0-12.0); Neutrophils 83 % (36.0-66.0); Platelet Estimate NORMAL (NORMAL); Total Cells Counted 100
== END 2018-09-20 10:49 | disposition home or self-care (01) ==
LOC: ED 07:11
DX: J40 Bronchitis, not specified as acute or chronic (principal)
CPT/HCPCS: 36000; 36415; 71045; 80053; 83605; 83880; 85025; 85379; 87040; 93005; 93041; 96365; 96374; 99284; J0456; J2930; A9270-GY

== ENCOUNTER 2020-08-03 20:00 | Emergency (ER) | payer OTHER ==
[2020-08-03 20:48] VITALS: O2SAT 98
[2020-08-03 21:10] LABS: Absolute Neutrophil Ct (ANC) 6.97 (1.4-6.9); BASOPHIL % 0.2 % (0.0-0.4); Basophil (Absolute #) 0.02 (0-0.4); Eosinophil % 1.7 % (0.00-5.0); Eosinophil (Absolute #) 0.18 (0-0.5); Hematocrit 39.2 % (35-47); Hemoglobin 12.4 gm/dl (12.0-16.0); Lymphocyte (Absolute #) 2.79 (1.0-4.6); Lymphocytes % 26.4 % (24.0-44.0); Mean Cell Volume 88.1 fl (78-100); Mean Corpuscular Hemoglobin 27.9 pg (26-32); Mean Corpuscular Hgb Concent. 31.6 g/dl (32-36); Mean Platelet Volume 9.4 fl (7.5-11.0); Monocytes % 5.7 % (0.0-12.0); Platelet Count 272 K/mm3 (150-450); Red Blood Count 4.45 M/mm3 (4.1-5.4); Red Cell Distribution Width 13.9 % (11.5-14.0); White Blood Count 10.6 K/mm3 (4.0-10.5)
[2020-08-03 21:22] LABS: ALKALINE PHOSPHATASE 112 U/L (38-126); ANION GAP 11.9 MEQ/L (5-15); BLOOD UREA NITROGEN 16 mg/dL (7-17); CHLORIDE 104 mmol/L (98-107); Calcium 9.5 mg/dL (8.4-10.2); Carbon Dioxide 24 mmol/L (22-30); Creatinine 1 0.55 mg/dL (0.52-1.04); EST GLOMERULAR FILTRATION RATE > 60.0 ML/MIN; Glucose 103 mg/dL (74-106); SGOT/AST 15 U/L (14-36); SGPT/ALT 11 U/L (0-35); SODIUM 135 mmol/L (137-145); Total Protein 7.2 g/dL (6.3-8.2)
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
[2020-08-03] MEDS ORDERED: NORCO 5/325 MG PO ONE (22:22)
[2020-08-03 22:26] VITALS: BP 117/66; PULSE 62
[2020-08-03] MEDS ORDERED: NORCO 5/325 MG ONE (22:26)
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
== END 2020-08-03 22:39 | disposition home or self-care (01) ==
LOC: ED 20:00
DX: M54.5 Low back pain (principal); R93.5 Abnormal findings on diagnostic imaging of other abdominal regions, including retroperitoneum; V43.52XA Car driver injured in collision with other type car in traffic accident, initial encounter; Z79.899 Other long term (current) drug therapy
CPT/HCPCS: 36000; 36415; 74177; 80053; 85025; 99284; A9270-GY